=== PATIENT | female | born 1945 | race Caucasian/White ===

== ENCOUNTER 2018-06-25 14:27 | Emergency (ER) | payer MEDICARE, OTHER ==
[~2018-06-25] VITALS: Ht 160 cm; Wt 66.7 kg
[~2018-06-25 14:27] MED LIST: ACHD5005 PO; ALLERGY SHOTS WEEKLY; ATOR10TA PO; CALC1TAB32 PO; CETI10CA PO; CHOL200018 PO; CRAN1CAP5 PO; ESZO1TAB2 PO; FEXO180T84 PO; FLUT16SP22 NS; MAGN250T7 PO; MULT-856 PO; OMEG1CAP51 PO; OMEP20CA6 PO; PANT20TA2 PO; RISE150T PO; SIMV20TA3 PO; TMZP15C GT; [UNRECOGNIZED DRUG - CODE] PO; [UNRECOGNIZED DRUG - OTHER] PO
--- OUTSIDE RECORDS SUMMARY | 2018-06-25 14:33 | XMS REPORT | Continuity of Care Document ---
Author Author [facility] Organization [facility] Address Unknown Phone Unavailable Allergies Active Description Code Type Severity Reaction Onset Reported/Identified Relationship to Patient Clinical Status Yes CIPRO [id number] Drug Allergy N/A N/A Yes MACROBID [id number] Drug Allergy N/A N/A Yes NO KNOWN DRUG ALLERGIES UNKNOWN NO KNOWN DRUG ALLERG Yes nitrofurantoin [id number] Drug Allergy Unknown N/A 09/14/2014 Medications Medication Packaging Start Date Stop Date Route Dosage Sig ZYRTEC ALLERGY 04/24/2016 ORAL 30 daily FLONASE 04/24/2016 Nasal 16 daily TETANUS,DIPTH,PERT ADULT INJ 0 (ADACEL SYRINGE) ml 12/27/2017 12/27/2017 ONCE&1510 POLY/BACI/NEOM OINT OINT (NEOSPORIN) ryan 12/27/2017 12/27/2017 ONCE&1552 Problems Date Dx Coded Attending Type Code Diagnosis Diagnosed By 08/01/2011 Ot 922.1 CONTUSION OF CHEST WALL 08/01/2011 Ot 959.11 OTH INJURY OF CHEST WALL 08/01/2011 Ot E000.8 OTHER EXTERNAL CAUSE STATUS 08/01/2011 Ot E849.0 ACCIDENT IN HOME 08/01/2011 Ot E888.9 FALL NOS 09/14/2014 Ot 211.1 BENIGN NEOPLASM STOMACH 09/14/2014 Ot 455.0 INT HEMORRHOID W/O COMPL 09/14/2014 Ot 455.3 EXT HEMORRHOID W/O COMPL 09/14/2014 Ot 530.11 REFLUX ESOPHAGITIS 09/14/2014 Ot 535.50 UNSP GASTRITIS GASTRODUODENITIS W/O ME 09/14/2014 Ot 553.3 DIAPHRAGMATIC HERNIA 09/14/2014 Ot V12.72 PERSONAL HISTORY OF COLONIC POLYPS 09/14/2014 Ot V76.51 SCREEN MAL NEOP-COLON 10/25/2014 Ot V72.84 03/24/2016 SATURNINO KENNEY FACC, LEROY RUFFIN CCDS Ot 416.8 CHR PULMON HEART DIS NEC 03/24/2016 Ot V72.84 EXAM PRE- OPERATIVE NOS 03/25/2016 KACEY LÓPEZ CERTIFIED NOVELL ADMINISTRATOR Ot E78.5 HYPERLIPIDEMIA, UNSPECIFIED 03/25/2016 BAIMAKACEY L CERTIFIED NOVELL ADMINISTRATOR Ot I10 ESSENTIAL (PRIMARY) HYPERTENSION 03/25/2016 BAIKACEY TAYLOR CERTIFIED NOVELL ADMINISTRATOR Ot I34.0 NONRHEUMATIC MITRAL (VALVE) INSUFFICIENC 03/25/2016 BAIKACEY TAYLOR L CERTIFIED NOVELL ADMINISTRATOR Ot Z86.79 PERSONAL HISTORY OF OTHER DISEASES OF 03/30/2016 KACEY LÓPEZ CERTIFIED NOVELL ADMINISTRATOR Ot E78.5 HYPERLIPIDEMIA, UNSPECIFIED 03/30/2016 BAIMA, KACEY L CERTIFIED NOVELL ADMINISTRATOR Ot I10 ESSENTIAL (PRIMARY) HYPERTENSION 03/30/2016 BAIMA, KACEY L CERTIFIED NOVELL ADMINISTRATOR Ot I34.0 NONRHEUMATIC MITRAL (VALVE) INSUFFICIENC 03/30/2016 KACEY LÓPEZ L CERTIFIED NOVELL ADMINISTRATOR Ot Z86.79 PERSONAL HISTORY OF OTHER DISEASES OF 04/17/2016 KACEY LÓPEZ CERTIFIED NOVELL ADMINISTRATOR Ot E78.5 HYPERLIPIDEMIA, UNSPECIFIED 04/17/2016 BAIMA, KACEY L CERTIFIED NOVELL ADMINISTRATOR Ot I10 ESSENTIAL (PRIMARY) HYPERTENSION 04/17/2016 BAIMA, KACEY L CERTIFIED NOVELL ADMINISTRATOR Ot I34.0 NONRHEUMATIC MITRAL (VALVE) INSUFFICIENC 04/17/2016 KACEY LÓPEZ L CERTIFIED NOVELL ADMINISTRATOR Ot Z86.79 PERSONAL HISTORY OF OTHER DISEASES OF 05/12/2017 Madeline Horn 845.00 UNSPECIFIED SITE OF ANKLE SPRAIN 05/12/2017 Madeline Horn S93.402A SPRAIN OF UNSPECIFIED LIGAMENT OF LEFT ANKLE, INITIAL ENCOUNTER 12/27/2017 Toi Mooney 883.0 OPEN WOUND OF FINGERS, WITHOUT MENTION OF COMPLICATION 12/27/2017 Toi Mooney S61.217A LAC W/O FB OF L LITTLE FINGER W/O DAMAGE TO NAIL, INIT 04/04/2018 Natasha Amaya 272.4 OTHER AND UNSPECIFIED HYPERLIPIDEMIA 04/04/2018 Natasha Amaya 733.90 DISORDER OF BONE AND CARTILAGE, UNSPECIFIED 04/04/2018 Natasha Amaya E78.5 HYPERLIPIDEMIA, UNSPECIFIED 04/04/2018 Natasha Amaya M85.80 OTHER SPECIFIED DISORDERS OF BONE DENSITY AND STRUCTURE, UNSPECIFIED SITE 04/04/2018 Natasha Amaya W 272.4 OTHER AND UNSPECIFIED HYPERLIPIDEMIA 04/04/2018 Natasha Amaya W 733.90 DISORDER OF BONE AND CARTILAGE, UNSPECIFIED 04/04/2018 Natasha Amaya W E78.5 HYPERLIPIDEMIA, UNSPECIFIED 04/04/2018 Natasha Amaya W M85.80 OTHER SPECIFIED DISORDERS OF BONE DENSITY AND STRUCTURE, UNSPECIFIED SITE Procedures There is no data. Results Test Result Range Urine Culture - 08/12/16 10:40 FINAL CULTURE RESULTS <10,000 Gram Negative No Further Workup done MEDIA PLATED Setup at 15:16 on 08/12/2016 CULTURE SOURCE clean catch urine Urine Culture - 02/25/18 16:09 MEDIA PLATED Setup at 16:20 on 02/25/2018 CULTURE SOURCE urine Sensi - 02/25/18 16:09 FINAL CULTURE RESULTS Citrobacter koseri (Isolate 1) Ampicillin/Sulbactam <=8/4 Ampicillin >16 Amoxicillin/K Clavulanate <=8/4 Ceftriaxone <=8 Ciprofloxacin <=1 Nitrofurantoin <=32 Gentamicin <=4 Levofloxacin <=2 Trimethoprim/ Sulfamethoxazole <=2/38 Tetracycline <=4 Amikacin <=16 Aztreonam <=8 Ceftazidime <=1 Ceftazidime/K Clavulanate <=0.25 Cephalothin <=8 Cefotaxime <=2 Cefotaxime/K Clavulanate <=0.5 Cefoxitin <=8 Cefazolin <=8 Cefepime <=8 Cefuroxime <=4 Ertapenem <=1 Imipenem <=4 Meropenem <=4 Piperacillin/Tazobactam <=16 Piperacillin 32 Tigecycline <=2 Tobramycin <=4 Sed Rate - 04/04/18 11:52 Sed Rate 4 mm/hr 9-15 Encounters ACCT No. Visit Date/Time Discharge Status Pt. Type Provider Facility Loc./Unit Complaint [id number] 04/05/2014 10:04:26 04/05/2014 23:59:59 CLS Outpatient Car Diaz [id number] 04/24/2016 14:59:00 Document Registration [id number] 03/24/2016 09:34:00 03/24/2016 23:59:59 CLS Outpatient KACEY LÓPEZ [facility] CARD MITRAL VALVE REGURGITATION,CAROTID ARTERY NARROWIN [id number] 11/09/2013 09:30:00 11/09/2013 23:59:59 CLS Outpatient SATURNINO KENNEY FACCLEROY FACP CCDS [facility] CARD PULMONARY HTN [id number] 06/25/2018 14:28:00 ACT Emergency CHAU MONTEIRO MD [facility] ER EAR INFECTION [id number] 09/14/2014 09:30:00 Document Registration [id number] 09/12/2014 07:19:00 Document Registration [id number] 08/01/2011 11:28:00 Document Registration [id number] 04/04/2018 10:47:00 04/04/2018 23:59:00 DIS Outpatient Jose LuisNatasha [id number] 02/25/2018 16:09:00 02/25/2018 23:59:00 DIS Outpatient Jose LuisNatasha [id number] 12/27/2017 14:17:00 12/27/2017 15:07:00 [id number]/12/2017 14:23:00 05/12/2017 15:26:00 [id number] 03/03/2017 17:16:00 03/03/2017 23:59:00 DIS Outpatient Jose LuisNatasha [id number] 12/18/2016 15:29:00 12/18/2016 23:59:00 DIS Outpatient Mey Bustamante [id number] 08/12/2016 12:06:00 08/12/2016 23:59:00 DIS Outpatient Stan Strauss [id number] 12/27/2017 15:11:41 Document Registration
[2018-06-25] MEDS ORDERED: MECLIZINE 25 MG (ANTIVERT) TAB PO ONE (15:15)
[2018-06-25] MEDS ORDERED: MECL-106 PO (15:31)
--- NOTE | 2018-06-25 15:31 | ED General ---
General Chief Complaint: Dizziness/Syncope Stated Complaint: EAR INFECTION Source of Information: Patient, Family Exam Limitations: No Limitations History of Present Illness Date Seen by Provider: Jun 25, 2018 Time Seen by Provider: 15:26 Initial Comments to ER with reports of suspected inner ear infection. She states that about 1 PM today she became suddenly dizzy. The dizziness is worse with movement and it subsides when she sits still. She's had this before and states that she was told it might be an inner ear infection. She denies any headache or head injury. No other neurologic symptoms such as speech difficulty vision changes or focal weakness. She has had to have Laura maneuver done before she states. Timing/Duration: 1-3 Hours Severity: Moderate Associated Systoms: Other (dizzy with position change. No nausea vomiting fevers or chills.) Allergies and Home Medications Allergies Coded Allergies: nitrofurantoin (Unverified Allergy, Unknown, 09/14/14) Home Medications Calcium Carbonate/Vitamin D3 1 Each Tab.chew, 1 EACH PO DAILY, (Reported) Cholecalciferol (Vitamin D3) 2,000 Unit Capsule, 1,000 UNIT PO DAILY, (Reported) Docosahexanoic Acid/Epa 1 Cap Capsule, 4 CAP PO DAILY, (Reported) Fexofenadine Hcl 180 Mg Tablet, 180 MG PO DAILY, (Reported) Fluticasone Propionate 16 Gm Naspr, 2 SPRAYS NS PRN, (Reported) Magnesium Oxide 250 Mg Tablet, 250 MG PO DAILY, (Reported) Meclizine HCl 25 Mg Tablet, 25 MG PO TID PRN for DIZZINESS Prescribed by: MANFRED TOVAR on 06/25/18 1531 Multivits W-Fe,Other Min/Lut 1 Each Tablet, 1 EACH PO DAILY, (Reported) Niacin 250 Mg Tablet.sa, 250 MG PO DAILY, (Reported) Pantoprazole Sodium 20 Mg Tablet.dr, 40 MG PO DAILY Prescribed by: NATHALIE MENJIVAR on 09/14/14 1119 Risedronate Sodium 150 Mg Tablet, 150 MG PO ONCE A MONTH, (Reported) Simvastatin 20 Mg Tablet, 20 MG PO DAILY, (Reported) Temazepam 15 Mg Cap, 15 MG GT HS, (Reported) [Vitamine B Complex] , 1 PO DAILY, (Reported) Patient Home Medication List Home Medication List Reviewed: Yes Review of Systems Review of Systems Constitutional: see HPI EENTM: see HPI Respiratory: no symptoms reported Cardiovascular: no symptoms reported Genitourinary: no symptoms reported Musculoskeletal: no symptoms reported Skin: no symptoms reported Psychiatric/Neurological: See HPI, Other (vertigo) Past Xltfsfr-Kuwero-Bjwbmw Hx Patient Social History Recent Foreign Travel: No Contact w/Someone Who Travel: No Immunizations Up To Date Date of Pneumonia Vaccine: Sep 14, 2004 Date of Influenza Vaccine: Apr 16, 2015 Physical Exam Vital Signs Vital Signs - First Documented 06/25/18 15:01 Temp 98.0 Pulse 63 Resp 16 B/P (MAP) 159/81 (107) Pulse Ox 97 O2 Delivery Room Air Capillary Refill : Height, Weight, BMI Height: 5'4.00" Weight: 156lbs. oz. 70.861388gd; BMI Method: General Appearance: No Apparent Distress, WD/WN Eyes: Bilateral Eye Normal Inspection, Bilateral Eye PERRL, Bilateral Eye EOMI HEENT: PERRL/EOMI, TMs Normal, Normal ENT Inspection Neck: Full Range of Motion, Normal Inspection Respiratory: No Accessory Muscle Use, No Respiratory Distress Cardiovascular: Regular Rate, Rhythm, Normal Peripheral Pulses Gastrointestinal: Normal Bowel Sounds, Non Tender, Soft Extremity: Normal Capillary Refill, Normal Inspection Neurologic/Psychiatric: Alert, Oriented x3, No Motor/Sensory Deficits Skin: Normal Color, Warm/Dry Progress/Results/Core Measures Suspected Sepsis SIRS Temperature: Pulse: Respiratory Rate: Blood Pressure / Mean: Results/Orders My Orders Orders - MANFRED TOVAR APRN Meclizine Tablet (Antivert Tablet) (06/25/18 15:15) Medications Given in ED Current Medications Medications Dose Ordered Sig/Arron Route Start Time Stop Time Status Last Admin Dose Admin Meclizine HCl 25 mg ONCE ONCE PO 06/25/18 15:15 06/25/18 15:16 DC 06/25/18 15:15 25 MG Vital Signs/I&O 06/25/18 15:01 Temp 98.0 Pulse 63 Resp 16 B/P (MAP) 159/81 (107) Pulse Ox 97 O2 Delivery Room Air Capillary Refill : Departure Communication (Admissions) 1604-Pt is feeling much better at this time. Ready to go home. Impression Primary Impression: Vertigo Disposition: HOME, SELF-CARE Condition: Stable Departure-Patient Inst. Decision time for Depature: 15:28 Referrals: IOANA RIDER MD (PCP/Family) Primary Care Physician Patient Instructions: Vertigo (a Type of Dizziness) (DC) Add. Discharge Instructions: Change positions slowly. Medication as directed. Follow-up with your doctor next week. All discharge instructions reviewed with patient and/or family. Voiced understanding. Scripts Meclizine HCl (Meclizine HCl) 25 Mg Tablet 25 MG PO TID PRN for DIZZINESS, #14 TAB Prov: MANFRED TOVAR APRN 06/25/18 MANFRED TOVAR APRN Jun 25, 2018 15:31
[2018-06-25 16:11] VITALS: BP 151/90
== END 2018-06-25 16:11 | disposition home or self-care (01) ==
LOC: EDUNIT# 14:27 → ER 14:28
DX: R42 Dizziness and giddiness (principal); Z88.8 Allergy status to other drugs, medicaments and biological substances; Z79.51 Long term (current) use of inhaled steroids
CPT/HCPCS: 99283

== ENCOUNTER 2019-03-28 12:30 | Outpatient (CLI) | payer MEDICARE, OTHER ==
[~2019-03-28] VITALS: Ht 160 cm; Wt 73.6 kg
[~2019-03-28 12:30] MED LIST changes: +ALEN35TA32 PO; +MECL-106 PO; +NIAC250T25 PO
[2019-03-28] MEDS ORDERED: SIMV20TA3 PO (12:45)
[2019-03-28] MEDS ORDERED: CHOL10007 PO (12:45)
[2019-03-28] MEDS ORDERED: OMEG-33 PO (12:45)
[2019-03-28] MEDS ORDERED: FLUT16SP22 NS (12:45)
[2019-03-28] MEDS ORDERED: CETI10CA PO (12:45)
[2019-03-28] MEDS ORDERED: ASPI-999 PO (12:45)
[2019-03-28] MEDS ORDERED: PUMP300C PO (12:45)
[2019-03-28] MEDS ORDERED: CALC600T12 PO (12:45)
[2019-03-28] MEDS ORDERED: MAGN250T35 PO (12:45)
[2019-03-28] MEDS ORDERED: MULT-178 PO (12:45)
[2019-03-28] MEDS ORDERED: DOXY25TA56 PO (12:45)
[2019-03-28] MEDS ORDERED: VITA1CAP PO (12:45)
== END 2019-03-28 14:17 | disposition home or self-care (01) ==
LOC: PREOP 12:30
PROVIDERS: ATTEND Surgery
DX: Z01.818 Encounter for other preprocedural examination (principal)

== ENCOUNTER 2019-03-29 10:50 | Day surgery (SDC) | payer MEDICARE, OTHER ==
[2019-03-29] VITALS (15 sets, daily range): BP systolic 95–159; BP diastolic 52–105
[~2019-03-29 10:50] MED LIST changes: +ASPI-999 PO; +CALC600T12 PO; +CHOL10007 PO; +DOXY25TA56 PO; +MAGN250T35 PO; +MULT-178 PO; +NS IV 500 ML 500 ML ONE; +OMEG-33 PO; +PUMP300C PO; +VITA1CAP PO
[2019-03-29] MEDS ORDERED: LIDOCAINE JELLY 2% 6 ML SYRINGE MM PRN (11:00)
[2019-03-29] MEDS ORDERED: MIDAZOLAM 2 MG/2 ML (VERSED) VIAL IVP ONE (11:00)
[2019-03-29] MEDS ORDERED: fentaNYL INJECTION 100 MCG/2 ML AMP IVP ONE (11:00)
[2019-03-29] MEDS ORDERED: HURRICAINE EXT TUBE (BENZOCAINE) XX PRN (11:00)
[2019-03-29] MEDS: NS IV 500 ML 500 ML IV PRN ×2 (11:00→13:06)
[2019-03-29] MEDS ORDERED: LIDOCAINE JELLY 2% 6 ML SYRINGE ONE (12:47)
[2019-03-29] MEDS ORDERED: fentaNYL INJECTION 100 MCG/2 ML AMP ONE (12:47)
[2019-03-29] MEDS ORDERED: HURRICAINE EXT TUBE (BENZOCAINE) ONE (12:47)
[2019-03-29] MEDS ORDERED: MIDAZOLAM 2 MG/2 ML (VERSED) VIAL ONE ×2 (12:48)
[2019-03-29] MEDS ORDERED: NS IV 500 ML 500 ML ONE (12:59)
--- NOTE | 2019-03-29 13:13 | Progress Note-Pre Operative ---
Pre-Operative Progress Note H&P Reviewed The H&P was reviewed, patient examined and no changes noted. Date Seen by Provider: Mar 29, 2019 Time Seen by Provider: 12:00 Date H&P Reviewed: Mar 29, 2019 Time H&P Reviewed: 12:00 Pre-Operative Diagnosis: GERD, hx salomon's NATHALIE MENJIVAR MD Mar 29, 2019 13:13
--- NOTE | 2019-03-29 13:13 | Conscious Sedation/ASA ---
Conscious Sedation Pre-Proced Time 12:00 ASA Score 2 For ASA 3 and 4: Consider anesthesia and medical clearance. Also, for patients with a history of failed moderate sedation consider anesthesia. Airway Lungs Heart ASA score ASA 1: a normal healthy patient ASA 2: a patient with a mild systemic disease (mid diabetes, controlled hypertension, obesity ASA 3: a patient with a severe systemic disease that limits activity (angina, COPD, prior Myocardial infarction) ASA 4: a patient with an incapacitating disease that is a constant threat to life (CHF, renal failure) ASA 5: a moribund patient not expected to survive 24 hrs. (ruptured aneurysm) ASA 6: a declared brain- patient whose organs are being harvested. For emergent operations, add the letter E after the classification Mallampati Classification Grade 2 Sedation Plan Analgesia, Amnesia, Plan communicated to team members, Discussed options with patient/fam, Discussed risks with patient/fam The patient is an appropriate candidate to undergo the planned procedure, sedation, and anesthesia. The patient immediately re-assessed prior to indication. NATHALIE MENJIVAR MD Mar 29, 2019 13:13
[2019-03-29] MEDS ORDERED: HYDROcodone/APAP 5 MG/325 MG (LORTAB) TAB PO PRN (13:15)
[2019-03-29] MEDS ORDERED: ACETAMINOPHEN 325 MG TABLET PO PRN (13:15)
[2019-03-29] MEDS ORDERED: ONDANSETRON 4 MG/2 ML (SDV) Z0FRAN IVP PRN (13:15)
[2019-03-29] MEDS ORDERED: morphine INJ 10 MG/ML 1ML (SYR OR VIAL) IVP PRN ×2 (13:15)
--- NOTE | 2019-03-29 13:15 | Discharge Inst-Surgical ---
D/C Lap Instructions-TIARA Follow Up Activity as tolerated High Fiber Diet 25g or more per day Avoid Alcohol, Caffeine, Spicy [place] and Acid foods. Drink 64 fluid oz or more of fluids per day. Symptoms to Report: Fever over 101 degree F, Nausea/Vomiting If any problems/questions: Contact your physician or go to Emergency Room NATHALIE MENJIVAR MD Mar 29, 2019 13:15
--- NOTE | 2019-03-29 13:57 | Progress Note-Post Operative ---
Post-Operative Progess Note Surgeon (s)/Dyed Raw Stock Blower Feeder (s) Surgeon NATHALIE MENJIVAR MD Dyed Raw Stock Blower Feeder: none Pre-Operative Diagnosis GERD, hx salomon's Post-Operative Diagnosis reflux esophagitis(stage 2), small-moderate HH(2.5cm), multiple small fundic polyps(<3mm), mild gastritis. Procedure & Operative Findings Date of Procedure 03/29/19 Procedure Performed/Findings EGD with bx. Anesthesia Type cs Estimated Blood Loss Estimated blood loss (mL): minimal Specimens/Packing Specimens Removed ge jxn, antrum NATHALIE MENJIVAR MD Mar 29, 2019 13:57
--- NOTE | 2019-03-29 21:08 | OPERATIVE REPORT ---
DATE OF SERVICE: 03/29/2019 ATTENDING PRIMARY CARE PHYSICIAN: Dr. Amaya. PREOPERATIVE DIAGNOSIS: Gastroesophageal reflux disease with history of Gauthier's esophagus. POSTOPERATIVE DIAGNOSES: Reflux esophagitis stage II, small to moderate size hiatal hernia, approximately 2.5 cm in size, multiple small hyperplastic polyps of the fundus of the stomach, all less than 3 mm in size. Mild gastritis. PROCEDURE: EGD with biopsy. SURGEON: Nathalie Menjivar MD. ANESTHESIA: Conscious sedation. ESTIMATED BLOOD LOSS: Minimal. FINDINGS: Reflux esophagitis stage II, small to moderate size hiatal hernia, approximately 2.5 cm in size, multiple small hyperplastic polyps of the fundus of the stomach, all less than 3 mm in size. Mild gastritis. DISPOSITION: The patient tolerated the procedure well. INDICATIONS: The patient is a 73-year-old female known to us. We had seen her in 2014 for an EGD and colonoscopy. During the EGD, she was found to have a reflux esophagitis stage II, small hiatal hernia 2 cm in size as well as a moderate severity gastritis. There were also multiple small hyperplastic polyps of the fundus of the stomach, all less than 3 mm in size, most likely due to a previous chronic PPI acid trumpet player use. She did discontinue her PPI acid trumpet player due to osteopenia. She is here for a followup on her Gauthier's esophagus. DESCRIPTION OF PROCEDURE: The patient was brought to the endoscopy suite, laid in left lateral decubitus position. After adequate IV pain and sedative medications and conscious sedation anesthesia, the mouthpiece was applied. The endoscope was placed in the mouth, visualizing the pharynx and hypopharyngeal region. Vocal cords, epiglottis and vallecula were identified and appeared to be normal. The endoscope was then gently intubated into the esophageal opening and esophagus was insufflated. The endoscope was then advanced to the first, second and third portion of the esophagus. At the level of GE junction, a reflux esophagitis stage II identified. There were no ulcers or strictures identified in this region. A biopsy was taken with forceps with visualization of good hemostasis. The endoscope was then advanced into the stomach and endoscope was retroflexed, visualizing a hiatal hernia, which was small to moderate size, approximately 2.5 cm. Multiple small fundic gastric polyps were identified, again all small and less than 3 mm in size and benign in appearance. There was a mild gastritis. No formal ulcerations, polyps, or any neoplasms. A biopsy was taken of the antrum to rule out H. pylori with visualization of good hemostasis. The endoscope was then advanced to the pylorus and the first and second portion of the duodenum, which appeared normal with no distal obstructions. The endoscope was then slowly withdrawn while taking a second look and suctioning of residual air with no additional findings. The patient tolerated the procedure well. We will recommend continued conservative therapy with the necessary lifestyle and diet accommodation including small and more frequent meals, avoidance of eating at night as well as head elevation while lying supine. She also needs to avoid caffeinated beverages, spicy, greasy and acidic foods. If she becomes more symptomatic from the heartburn and reflux standpoint despite maximum medical therapy, she may benefit from a hiatal hernia repair and an antireflux procedure; however, before this, we would proceed with the necessary evaluation and testing, which would include an esophageal manometry study to rule out esophageal dysmotility. Job ID: [id number] DocumentID: [id number] Dictated Date: 03/29/2019 13:42:59 Career Technical Counselor Date: 03/29/2019 21:07:58 Dictated By: NATHALIE MENJIVAR MD
== END 2019-03-29 14:37 | disposition home or self-care (01) ==
LOC: ENDO 10:50
PROVIDERS: ATTEND Surgery
DX: K29.50 Unspecified chronic gastritis without bleeding (principal); K22.70 Barrett's esophagus without dysplasia; K21.0 Gastro-esophageal reflux disease with esophagitis; K31.7 Polyp of stomach and duodenum; K44.9 Diaphragmatic hernia without obstruction or gangrene; E78.00 Pure hypercholesterolemia, unspecified; M85.80 Other specified disorders of bone density and structure, unspecified site; Z86.010 Personal history of colon polyps; Z88.1 Allergy status to other antibiotic agents; Z88.8 Allergy status to other drugs, medicaments and biological substances; Z79.82 Long term (current) use of aspirin; Z79.899 Other long term (current) drug therapy; Z80.1 Family history of malignant neoplasm of trachea, bronchus and lung; Z80.3 Family history of malignant neoplasm of breast
CPT/HCPCS: 88305

== ENCOUNTER → 2019-09-11 | Outpatient (CLI) | payer MEDICARE, OTHER ==
[~2019-09-11] MED LIST changes: +ALEN35TA13 PO; -ALEN35TA32 PO; -MECL-106 PO; +MECL-149 PO; -NS IV 500 ML 500 ML ONE; +SIMV20TA26 PO
== END ==
LOC: CARD 13:01
PROVIDERS: ATTEND Nurse Practitioner Family
DX: I07.1 Rheumatic tricuspid insufficiency (principal); I65.29 Occlusion and stenosis of unspecified carotid artery; I10 Essential (primary) hypertension; Z86.79 Personal history of other diseases of the circulatory system
CPT/HCPCS: 93306

== ENCOUNTER 2022-05-27 05:35 | Outpatient (CLI) | payer MEDICARE, OTHER ==
[~2022-05-27] VITALS: Ht 160 cm; Wt 75.8 kg
[~2022-05-27 05:35] MED LIST changes: -ALEN35TA13 PO; +ALEN35TA53 PO; -CALC600T12 PO; +CALC600T91 PO
[2022-05-27] MEDS ORDERED: PUMP300C PO (11:07)
[2022-05-27] MEDS ORDERED: MELO7.5T46 PO (11:07)
== END 2022-05-27 11:10 | disposition home or self-care (01) ==
LOC: PREOP 05:35
PROVIDERS: ATTEND Surgery
DX: Z01.818 Encounter for other preprocedural examination (principal)

== ENCOUNTER 2022-06-10 11:18 | Day surgery (SDC) | payer MEDICARE, OTHER ==
[~2022-06-10] VITALS: Ht 160 cm; Wt 75.8 kg
[~2022-06-10 11:18] MED LIST changes: +LACTATED RINGERS 1,000 ML IV STA; +MELO7.5T46 PO
[2022-06-10] MEDS ORDERED: HURRICAINE EXT TUBE (BENZOCAINE) XX PRN (11:30)
[2022-06-10] MEDS ORDERED: LIDOCAINE JELLY 2% 6 ML SYRINGE MM PRN (11:30)
[2022-06-10 11:35] VITALS: BP 148/67
--- NOTE | 2022-06-10 11:42 | Progress Note-Pre Operative ---
Pre-Operative Progress Note Date of Available H&P: Jun 10, 2022 Date H&P Reviewed: Jun 10, 2022 Time H&P Reviewed: 11:30 History & Physical: No changes noted Pre-Operative Diagnosis: dario aquino TAKAAKI MD Jun 10, 2022 11:42
[2022-06-10] MEDS ORDERED: ONDANSETRON 4 MG/2 ML (SDV) Z0FRAN IVP PRN (11:45)
[2022-06-10] MEDS ORDERED: ONDANSETRON 4 MG (ZOFRAN) ORAL DISSOLVE TAB PO PRN (11:45)
--- NOTE | 2022-06-10 11:45 | Discharge Inst-Surgical ---
D/C Lap Instructions-TIARA Follow Up Activity as tolerated High Fiber Diet 25g or more per day Avoid Alcohol, Caffeine, Spicy [place] and Acid foods. Drink 64 fluid oz or more of fluids per day. Symptoms to Report: Fever over 101 degree F, Nausea/Vomiting If any problems/questions: Contact your physician or go to Emergency Room NATHALIE MENJIVAR MD Jun 10, 2022 11:45
[2022-06-10] MEDS ORDERED: PROPOFOL INJECTION 50 ML IV ONE (12:21)
[2022-06-10 13:10] VITALS: BP 117/74
[2022-06-10 13:15] VITALS: BP 120/61
--- NOTE | 2022-06-10 13:20 | Progress Note-Post Operative ---
Post-Operative Progess Note Surgeon (s)/Thermocouple Tester (s) Surgeon NATHALIE MENJIVAR MD Thermocouple Tester: none Pre-Operative Diagnosis hx baretts, screening colo Post-Operative Diagnosis reflux esophagitis(grade B), small HH(2cm), moderate gastritis. mild chronic stage 2 ext and int hemorrhoids. Procedure & Operative Findings Date of Procedure 06/10/22 Procedure Performed/Findings EGD with bx. colonoscopy. Anesthesia Type mac Estimated Blood Loss Estimated blood loss (mL): minimal Specimens/Packing Specimens Removed ge jxn, antrum NATHALIE MENJIVAR MD Jun 10, 2022 13:20
[2022-06-10 13:30] VITALS: BP 155/85
[2022-06-10 13:44] VITALS: BP 155/85
--- NOTE | 2022-06-10 14:42 | Anesthesia-General Post-Op ---
MAC Patient Condition Mental Status/LOC: Same as Preop Cardiovascular: Satisfactory Nausea/Vomiting: Absent Respiratory: Satisfactory Pain: Controlled Complications: Absent Post Op Complications Complications None Follow Up Care/Instructions Patient Instructions None needed. Anesthesiology Discharge Order Discharge Order Patient is doing well, no complaints, stable vital signs, no apparent adverse anesthesia problems. No complications reported per nursing. FELIPE MARISCAL CRNA Jun 10, 2022 14:42
--- NOTE | 2022-06-11 00:22 | OPERATIVE REPORT ---
DATE OF SERVICE: 06/10/2022 ATTENDING PRIMARY CARE PHYSICIAN: Dr. Natasha Amaya. PREOPERATIVE DIAGNOSES: History of gastroesophageal reflux disease and Gauthier's esophagus, screening colonoscopy. POSTOPERATIVE DIAGNOSES: Reflux esophagitis, [place] grade B, small hiatal hernia 2 cm in size and mild to moderate gastritis, chronic stage II external and internal hemorrhoids. PROCEDURES: EGD with biopsy, colonoscopy. SURGEON: Nathalie Vincent MD. ANESTHESIA: Monitored anesthesia care. ESTIMATED BLOOD LOSS: Minimal. FINDINGS: Reflux esophagitis, [place] grade B, small hiatal hernia 2 cm in size and mild to moderate gastritis, chronic stage II external and internal hemorrhoids. DISPOSITION: The patient tolerated the procedure well. INDICATIONS: The patient is a 76-year-old female, who has had issues with gastroesophageal reflux disease and has had upper endoscopies before and along with biopsies, which did show Gauthier's esophagus. Due to the history of Gauthier's, recommendation is to proceed with followup upper endoscopy approximately every 3 years. She is also in need of a screening colonoscopy. She reports that she has had a few colonoscopies in the past with the last one done in 2011 and believes this to be normal. She does not report any family history of colon cancer. DESCRIPTION OF PROCEDURE: The patient was brought to the endoscopy suite and laid in the left lateral decubitus position. After adequate IV pain and sedative medications and monitored anesthesia care, the mouthpiece was applied. The endoscope was placed in the mouth, visualizing the pharynx and hypopharyngeal region. Vocal cords, epiglottis and vallecula were identified and appeared to be normal. The endoscope was then gently intubated and the esophageal opening. Esophagus was insufflated. The endoscope was then advanced through the first, second and third portions of the esophagus and at the level of the GE junction, a reflux esophagitis and Ch[place]ot grade B identified. No ulcers or strictures. A biopsy was taken with forceps with visualization with good hemostasis. The endoscope was then advanced in the stomach and endoscope retroflexed, visualizing a small hiatal hernia approximately 2 cm in size. There was a ctyp-ad-iuhgkfun diffuse gastritis, no formal ulcerations, polyps or neoplasms. A biopsy was taken to the antrum to rule out H. pylori with visualization and good hemostasis. The endoscope was then advanced through the pylorus and the first and second portion of the duodenum, which appeared normal with no ulcerations or distal obstructions. The endoscope was slowly withdrawn, taking second look and suctioning of residual air with no additional findings. A digital rectal examination was performed, which revealed chronic stage II, external and internal hemorrhoids, not actively edematous or inflamed and no bleeding. Normal sphincter tone itself and there were no palpable masses. The endoscope was then intubated into the anus, rectum, and gently insufflated. The endoscope was then advanced to the valves of Diaz of the rectum with no polyps or neoplasms. Through the sigmoid colon, no diverticulosis was identified. We then proceeded to the remainder of the descending, transverse and ascending colon to the cecum, which appeared normal with no polyps or neoplasms identified. The endoscope was then slowly withdrawn while taking a second look and suctioning of residual air with no additional findings. The patient tolerated the procedure well. We will recommend the necessary lifestyle and dietary accommodation including small more frequent meals, avoiding to eating at night as well as head elevation while lying supine. She also needs to avoid caffeinated beverages spicy, greasy and acidic foods. If she is not on an acid business systems administrator, we will start her on Protonix 40 mg daily. We will also recommend a high fiber diet with an addition of a fiber supplement, which equal exceed 25 grams daily as well as significant amounts of water to promote soft consistency stools on a daily basis. If she follows this, this should prevent issues related to hemorrhoidal flareups, diverticulosis as well as colon polyps and colon cancer. If she is asymptomatic, she does not need another colonoscopy for another 10 years. Job ID: [id number] DocumentID: [id number] Dictated Date: 06/10/2022 13:15:32 Field Artillery Officer Date: 06/11/2022 00:20:00 Dictated By: NATHALIE VINCENT MD
== END 2022-06-10 13:43 | disposition home or self-care (01) ==
LOC: ENDO 11:18
PROVIDERS: ATTEND Surgery
DX: Z12.11 Encounter for screening for malignant neoplasm of colon (principal); K21.00 Gastro-esophageal reflux disease with esophagitis, without bleeding; K44.9 Diaphragmatic hernia without obstruction or gangrene; K29.70 Gastritis, unspecified, without bleeding; K64.1 Second degree hemorrhoids; K64.4 Residual hemorrhoidal skin tags; Z87.19 Personal history of other diseases of the digestive system; Z86.010 Personal history of colon polyps
CPT/HCPCS: 43239; G0105; 88305

== ENCOUNTER 2022-06-14 10:54 | Emergency (ER) | payer MEDICARE, OTHER ==
[~2022-06-14] VITALS: Ht 160 cm; Wt 74.5 kg
[~2022-06-14 10:54] MED LIST changes: -LACTATED RINGERS 1,000 ML IV STA
--- NOTE | 2022-06-14 11:21 | ED GI ---
General Chief Complaint: Post OP Complications/Pain Stated Complaint: POST OP SCOPE/PASSING BLOOD CLOTS Nursing Triage Note: PT STATES DR. VINCENT DID UPPER AND LOWER GI SCOPE ON LAST WEDNESDAY, CC OF PT PASSING BLOOD CLOTS AND DIARRHEA Source of Information: Patient Exam Limitations: No Limitations History of Present Illness Date Seen by Provider: Jun 14, 2022 Time Seen by Provider: 11:10 Initial Comments 76-year-old female presents the emergency department today for bright red blood and blood clots per rectum. Symptoms started this morning. She has now had 3 loose bowel movements. She states initially the first was liquid red blood. Second was red blood mixed with a small amount of liquid stool. The third was a blood clot. She has some abdominal tenderness in the epigastric region. Notably she had an upper and lower endoscopy with gastric biopsy on 06/10/[address] Vincent. She has been doing well up until this point. Allergies and Home Medications Allergies Coded Allergies: nitrofurantoin (Unverified Allergy, Severe, ANAPHYLAXIS, 03/28/19) ciprofloxacin (Unverified Allergy, Unknown, 05/27/22) Patient Home Medication List Alendronate Sodium (Alendronate Sodium) 35 Mg Tablet, 35 MG PO WEEK, (Reported) Entered as Reported by: GARETH QUACH on 03/28/19 1225 Aspirin (Aspirin) 81 Mg Tab.chew, 81 MG PO DAILY, (Reported) Entered as Reported by: GARETH QUACH on 03/28/19 1245 Calcium Carbonate (Calcium) 600 Mg Tablet, 600 MG PO BID, (Reported) Entered as Reported by: GARETH QUACH on 03/28/19 1245 Cetirizine HCl (Zyrtec) 10 Mg Capsule, 10 MG PO DAILY, (Reported) Entered as Reported by: GARETH QUACH on 03/28/19 1245 Cholecalciferol (Vitamin D3) (Vitamin D3) 1,000 Unit Capsule, 1,000 UNIT PO DAILY, (Reported) Entered as Reported by: GARETH QUACH on 03/28/19 1245 Doxylamine Succinate (Unisom) 25 Mg Tablet, 25 MG PO HS, (Reported) Entered as Reported by: GARETH QUACH on 03/28/19 1245 Fluticasone Propionate (Fluticasone Propionate) 16 Gm [place].susp, 16 GM NS PRN, (Reported) Entered as Reported by: GARETH QUACH on 03/28/19 1245 Magnesium Oxide (Magnesium Oxide) 250 Mg Tablet, 250 MG PO DAILY, (Reported) Entered as Reported by: GARETH QUACH on 03/28/19 1245 Meloxicam (Meloxicam) 7.5 Mg Tablet, 7.5 MG PO, (Reported) Entered as Reported by: STEPHANY LÓPEZ on 05/27/22 1107 Multivitamin (Multiple Vitamins) 1 Each Tablet, 1 EACH PO DAILY, (Reported) Entered as Reported by: GARETH QUACH on 03/28/19 1245 Niacin (Endur-Acin) 250 Mg Tablet.er, 250 MG PO DAILY, (Reported) Entered as Reported by: GARETH QUACH on 03/28/19 1225 Taylor-3/Dha/Epa/Fish Oil (Fish Oil 500 mg Softgel) 1 Each Capsule, 1 EACH PO QID, (Reported) Entered as Reported by: GARETH QUACH on 03/28/19 1245 Pumpkin Seed Extract/Soy Germ (Azo Bladder Control Capsule) 300 Mg Capsule, 300 MG PO, (Reported) Entered as Reported by: STEPHANY LÓPEZ on 05/27/22 1107 Simvastatin (Simvastatin) 20 Mg Tablet, 20 MG PO DAILY, (Reported) Entered as Reported by: GARETH QUACH on 03/28/19 1245 Past Tazzfqw-Mkjrou-Eedasx Hx Patient Social History Tobacco Use?: No Substance use?: No Alcohol Use?: No Immunizations Up To Date Influenza Vaccine Up-to-Date: Yes; Up-to-Date First/Initial COVID19 Vaccinat: YES Second COVID19 Vaccination Mesfin: YES Third COVID19 Vaccination Date: YES Seasonal Allergies Seasonal Allergies: Yes (WEEKLY ALLERGY SHOTS) Past Medical History Surgery/Hospitalization HX: LEAKING HEART VALVE, APPENDECTOMY, GALLBLADDER, HYESTERECTOMY, SINUS, Surgeries: Yes (CATARACTS, CANCER REMOVED FROM LEG/NOSE, HEART CATH) Adenoidectomy, Appendectomy, Gallbladder, Hysterectomy, Tonsillectomy, Tubal Ligation Respiratory: No Cardiac: Yes (LEAKING VALVE; HEART CATHS X2) High Cholesterol Neurological: No [employer] COMM[employer]ICATIONS History: Hysterectomy Sexually Transmitted Disease: No HIV/AIDS: No Genitourinary: Yes UTI-Chronic Gastrointestinal: Yes Gastroesophageal Reflux, Gauthier's Esophagus Musculoskeletal: No (RUPTURED DISK IN BACK, 2 DISKS "TOGETHER" BUT NOT FUSED) Osteoporosis, Arthritis, Chronic Back Pain Endocrine: No HEENT: No (GLASSES, CATARACTS REMOVED) Cataract Loss of Vision: Denies Hearing Impairment: Denies Cancer: Yes (BASAL CELL LEG, 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 oz. [id number]; 29.00 BMI Method:Stated Progress/Results/Core Measures Results/Orders Lab Results Laboratory Tests Test 06/14/22 11:28 Range/Units White Blood Count 4.2 L 4.3-11.0 10^3/uL Red Blood Count 5.00 3.80-5.11 10^6/uL Hemoglobin 15.6 11.5-16.0 g/dL Hematocrit 45 35-52 % Mean Corpuscular Volume 89 80-99 fL Mean Corpuscular Hemoglobin 31 25-34 pg Mean Corpuscular Hemoglobin Concent 35 32-36 g/dL Red Cell Distribution Width 12.4 10.0-14.5 % Platelet Count 201 130-400 10^3/uL Mean Platelet Volume 10.5 9.0-12.2 fL Immature Granulocyte % (Auto) 0 % Neutrophils (%) (Auto) 70 42-75 % Lymphocytes (%) (Auto) 19 12-44 % Monocytes (%) (Auto) 7 0-12 % Eosinophils (%) (Auto) 4 0-10 % Basophils (%) (Auto) 1 0-10 % Neutrophils # (Auto) 2.9 1.8-7.8 10^3/uL Lymphocytes # (Auto) 0.8 L 1.0-4.0 10^3/uL Monocytes # (Auto) 0.3 0.0-1.0 10^3/uL Eosinophils # (Auto) 0.2 0.0-0.3 10^3/uL Basophils # (Auto) 0.0 0.0-0.1 10^3/uL Immature Granulocyte # (Auto) 0.0 0.0-0.1 10^3/uL Sodium Level 136 135-145 MMOL/L Potassium Level 3.8 3.6-5.0 MMOL/L Chloride Level 104 98-107 MMOL/L Carbon Dioxide Level 19 L 21-32 MMOL/L Anion Gap 13 5-14 MMOL/L Blood Urea Nitrogen 17 7-18 MG/DL Creatinine 0.78 0.60-1.30 MG/DL Estimat Glomerular Filtration Rate 79 BUN/Creatinine Ratio 22 Glucose Level 84 70-105 MG/DL Calcium Level 9.1 8.5-10.1 MG/DL Corrected Calcium 9.1 8.5-10.1 MG/DL Total Bilirubin 0.5 0.1-1.0 MG/DL Aspartate Amino Transf (AST/SGOT) 62 H 5-34 U/L Alanine Aminotransferase (ALT/SGPT) 62 H 0-55 U/L Alkaline Phosphatase 80 40-136 U/L Total Protein 6.6 6.4-8.2 GM/DL Albumin 4.0 3.2-4.5 GM/DL My Orders Orders - CORBY STAPLETON DO Comprehensive Metabolic Panel (06/14/22 11:18) Cbc With Automated Diff (06/14/22 11:18) Abdomen/Kub 1view (06/14/22 11:21) Vital Signs/I&O 06/14/22 11:00 Temp 36.4 Pulse 71 Resp 18 B/P (MAP) 121/80 (94) Pulse Ox 99 O2 Delivery Room Air Blood Pressure Mean: 94 Departure Communication (Admissions) Patient is hemodynamically stable. No further bloody stools here. Colonoscopy results revealed grade 2 hemorrhoids. I spoke with Dr. Vincent he believes bleeding is likely from her hemorrhoids. Her hemoglobin is stable. She is had no recurrence of bleeding here. Hemorrhoids are likely irritated during the colonoscopy itself. She does not have any shortness of breath, chest pain and is not lightheaded. Upright KUB showed no evidence for free air. No indication of perforation at this time. She is medically stable for discharge at this time. Impression Primary Impression: Bleeding hemorrhoids Disposition: HOME, SELF-CARE Condition: Stable Departure-Patient Inst. Referrals: IOANA RIDER MD (PCP/Family) Primary Care Physician Patient Instructions: Hemorrhoids, Bloody Stools, Adult ED Add. Discharge Instructions: Use fiber supplements, stool softeners. Follow-up with Dr. Vincent in the office sometime this week for further treatment recommendations. Return to the emergency department immediately to the dizziness, lightheadedness, shortness of breath or if your symptoms change in any way otherwise concerning to you CORBY STAPLETON DO Jun 14, 2022 11:21
[2022-06-14 11:34] LABS: BASOPHILS % (AUTO) 1 % (0-10); EOSINOPHILS # (AUTO) 0.2 10^3/uL (0.0-0.3); EOSINOPHILS % (AUTO) 4 % (0-10); HEMATOCRIT 45 % (35-52); HEMOGLOBIN 15.6 g/dL (11.5-16.0); LYMPHOCYTES # (AUTO) 0.8 10^3/uL (1.0-4.0); LYMPHOCYTES % (AUTO) 19 % (12-44); MEAN CORPUSCULAR HEMOGLOBIN 31 pg (25-34); MEAN CORPUSCULAR HGB CONC 35 g/dL (32-36); MEAN CORPUSCULAR VOLUME 89 fL (80-99); MEAN PLATELET VOLUME 10.5 fL (9.0-12.2); MONOCYTES # (AUTO) 0.3 10^3/uL (0.0-1.0); MONOCYTES % (AUTO) 7 % (0-12); NEUTROPHILS # (AUTO) 2.9 10^3/uL (1.8-7.8); NEUTROPHILS % (AUTO) 70 % (42-75); PLATELET COUNT 201 10^3/uL (130-400); WHITE BLOOD COUNT 4.2 10^3/uL (4.3-11.0)
[2022-06-14 11:45] LABS: POTASSIUM 3.8 MMOL/L (3.6-5.0)
[2022-06-14 11:46] LABS: CALCIUM 9.1 MG/DL (8.5-10.1)
[2022-06-14 11:47] LABS: TOTAL PROTEIN 6.6 GM/DL (6.4-8.2)
[2022-06-14 11:49] LABS: BILIRUBIN,TOTAL 0.5 MG/DL (0.1-1.0)
[2022-06-14 11:51] LABS: CREATININE SERUM 0.78 MG/DL (0.60-1.30)
--- NOTE | 2022-06-14 12:06 | Diagnostic Imaging Report ---
ABDOMEN/KUB 1VIEW INDICATION: Abdominal pain and diarrhea after colonoscopy COMPARISON: None available. TECHNIQUE: Upright AP view of the abdomen FINDINGS: No free intraperitoneal air. Nonobstructive bowel gas. Cholecystectomy. Normal regional skeleton. There are few soft tissue mineralizations in the lower abdomen projected adjacent to the L4-L5 vertebrae, and are most likely phleboliths. IMPRESSION: No free intraperitoneal air. Dictated by: Dictated on workstation # [id number]
[2022-06-14 12:35] VITALS: BP 101/44
== END 2022-06-14 12:35 | disposition home or self-care (01) ==
LOC: EDUNIT# 10:54 → ER 10:56
DX: K64.9 Unspecified hemorrhoids (principal)
CPT/HCPCS: 36415; 74018; 80053; 85025